=== PATIENT | male | born 1950 | race Caucasian/White ===

== ENCOUNTER → 2017-06-21 | Outpatient (CLI) | payer OTHER ==
[~2017-06-21] MED LIST: BENZ1TAB70 PO; CEPH500 PO; RISP2 PO; SULF-168 PO
== END | disposition home or self-care (01) ==
LOC: RADPV 09:19
PROVIDERS: ATTEND Internal Medicine Critical Care Medicine
DX: R13.10 Dysphagia, unspecified (principal); R05 Cough; R09.89 Other specified symptoms and signs involving the circulatory and respiratory systems
CPT/HCPCS: 74230; 92611

== ENCOUNTER 2018-07-01 18:09 | Emergency (ER) | payer MEDICARE, MEDICAID ==
[~2018-07-01] VITALS: Ht 174 cm; Wt 60.9 kg
[2018-07-01 20:55] LABS: BASOPHILS % (AUTO) 0.8 % (0.0-2.0); EOSINOPHILS % (AUTO) 8.2 % (1.0-6.0); HEMATOCRIT 34.7 % (41-53); HEMOGLOBIN 11.2 g/dL (13.5-17.5); LYMPHOCYTES # (AUTO) 1.7 K/uL (1.0-4.8); LYMPHOCYTES % (AUTO) 14.5 % (22.0-44.0); MEAN CORPUSCULAR HGB CONC 32.4 G/dL (31.0-37.0); MEAN CORPUSCULAR VOLUME 87 fL (80-100); MONOCYTES # (AUTO) 1.1 K/uL (0.1-1.0); NEUTROPHILS % (AUTO) 67.5 % (40.0-70.0); PLATELET COUNT (AUTO) 431 K/uL (150-450); RED BLOOD CELL COUNT(AUTO) 4.01 MIL/uL (4.50-5.90); RED CELL DISTRIBUTION WIDTH 17.5 % (11.5-14.5)
[2018-07-01 21:12] LABS: ANION GAP 9 mmol/L (8-16); CALCIUM, TOTAL 8.7 mg/dL (8.8-10.5); CARBON DIOXIDE 26 mmol/L (22-29); CHLORIDE 104 mmol/L (98-107); CREATININE 1.05 mg/dL (0.60-1.30); GLOMERULAR FILTR. RATE CALC > 60 mL/min (>60); GLUCOSE,RANDOM 106 mg/dL (70-110); POTASSIUM 5.1 mmol/L (3.5-5.1); SODIUM SERUM 139 mmol/L (136-145); UREA NITROGEN, BLOOD 29 mg/dL (7-18)
[2018-07-01 21:26] LABS: ALANINE AMINOTRANSFERASE 21 U/L (12-78); ALKALINE PHOSPHATASE 105 U/L (46-116); ASPARTATE AMINOTRANSFERASE 16 U/L (15-37); BILIRUBIN,TOTAL 0.2 mg/dL (0.1-1.0); TOTAL PROTEIN, SERUM 7.6 g/dL (6.4-8.2)
[2018-07-01 21:28] LABS: AMPHET/METH SCREEN,URINE NEGATIVE (NEGATIVE); BARBITURATE SCREEN, URINE NEGATIVE (NEGATIVE); BENZODIAZEPINES SCREEN,URINE NEGATIVE (NEGATIVE); CANNABINOID SCREEN,URINE POSITIVE (NEGATIVE); COCAINE SCREEN,URINE POSITIVE (NEGATIVE); METHADONE SCREEN, URINE NEGATIVE (NEGATIVE); OPIATE SCREEN,URINE NEGATIVE (NEGATIVE)
[2018-07-01 21:30] LABS: PHENCYCLIDINE SCREEN,URINE NEGATIVE (NEGATIVE)
[2018-07-01 22:10] VITALS: BP 147/82
== END 2018-07-01 22:33 | disposition home or self-care (01) ==
LOC: EMS 20:16
DX: R45.4 Irritability and anger (principal); R45.1 Restlessness and agitation; F20.9 Schizophrenia, unspecified; F17.210 Nicotine dependence, cigarettes, uncomplicated; F12.90 Cannabis use, unspecified, uncomplicated; Z88.8 Allergy status to other drugs, medicaments and biological substances; Z79.899 Other long term (current) drug therapy
CPT/HCPCS: 36415; 80053; 80307; 85025; 99283; G0480

== ENCOUNTER 2018-09-19 11:58 | Inpatient (IN) | payer MEDICAID, MEDICARE ==
[~2018-09-19] VITALS: Ht 170.2 cm; Wt 56.5 kg
[2018-09-19] MEDS ORDERED: PERMETHRIN 5% 60 GM CREAM TP ONE (13:00)
[2018-09-19] MEDS ORDERED: DiphenhydrAMINE HCL 25 MG CAPSULE PO ONE (13:00)
[2018-09-19 13:50] LABS: BASOPHILS % (AUTO) 0.4 % (0.0-2.0); EOSINOPHILS % (AUTO) 3.5 % (1.0-6.0); HEMATOCRIT 40.8 % (41-53); LYMPHOCYTES # (AUTO) 1.6 K/uL (1.0-4.8); LYMPHOCYTES % (AUTO) 13.3 % (22.0-44.0); MEAN CORPUSCULAR HEMOGLOBIN 26.7 pg (26.0-34.0); MEAN CORPUSCULAR HGB CONC 31.9 G/dL (31.0-37.0); MEAN CORPUSCULAR VOLUME 84 fL (80-100); MONOCYTES # (AUTO) 0.6 K/uL (0.1-1.0); MONOCYTES % (AUTO) 5.1 % (2.0-9.0); NEUTROPHILS # (AUTO) 9.6 K/uL (1.8-7.7); NEUTROPHILS % (AUTO) 77.7 % (40.0-70.0); PLATELET COUNT (AUTO) 472 K/uL (150-450); RED BLOOD CELL COUNT(AUTO) 4.87 MIL/uL (4.50-5.90); RED CELL DISTRIBUTION WIDTH 18.2 % (11.5-14.5)
[2018-09-19 13:57] LABS: ANION GAP 8 mmol/L (8-16); CALCIUM, TOTAL 8.6 mg/dL (8.8-10.5); CARBON DIOXIDE 28 mmol/L (22-29); CHLORIDE 103 mmol/L (98-107); CREATININE 0.94 mg/dL (0.60-1.30); GLOMERULAR FILTR. RATE CALC > 60 mL/min (>60); GLUCOSE,RANDOM 132 mg/dL (70-110); POTASSIUM 3.5 mmol/L (3.5-5.1); SODIUM SERUM 139 mmol/L (136-145); UREA NITROGEN, BLOOD 22 mg/dL (7-18)
[2018-09-19 14:09] LABS: ALANINE AMINOTRANSFERASE 19 U/L (12-78); ALKALINE PHOSPHATASE 124 U/L (46-116); ASPARTATE AMINOTRANSFERASE 15 U/L (15-37); BILIRUBIN,TOTAL 0.2 mg/dL (0.1-1.0); TOTAL PROTEIN, SERUM 7.5 g/dL (6.4-8.2)
[2018-09-19] MEDS ORDERED: LORazepam 2 MG/ML VIAL ONE (19:53)
[2018-09-19] MEDS ORDERED: DiphenhydrAMINE HCL 50 MG/ML VIAL ONE (19:53)
[2018-09-19] MEDS ORDERED: HALOPERIDOL LACTATE 5 MG/ML VIAL ONE (19:53)
[2018-09-19] MEDS ORDERED: HALOPERIDOL LACTATE 5 MG/ML VIAL IM ONE (20:00)
[2018-09-19] MEDS ORDERED: DiphenhydrAMINE HCL 50 MG/ML VIAL IM ONE (20:00)
[2018-09-19] MEDS ORDERED: LORazepam 2 MG/ML VIAL IM ONE (20:00)
[2018-09-19] MEDS ORDERED: PETROLATUM,WHITE 28 GM JELLY TP PRN (21:15)
[2018-09-19] MEDS ORDERED: MAGNESIUM HYDROXIDE SUSPENSION 30 ML UDCUP PO PRN (21:15)
[2018-09-19] MEDS ORDERED: MAG HYDROX/AL HYDROX/SIMETH ES 30 ML SUSPENSION UDCUP PO PRN (21:15)
[2018-09-19] MEDS ORDERED: CloNIDine HCL 0.1 MG TABLET PO PRN (21:15)
[2018-09-19] MEDS ORDERED: ALBUTEROL SULFATE HFA 90 MCG/PUFF 8 GM INHALER IH PRN (21:15)
[2018-09-19] MEDS ORDERED: DOCUSATE SODIUM 100 MG CAPSULE PO PRN (21:15)
[2018-09-19] MEDS ORDERED: NICOTINE 14 MG/24 HOUR PATCH TD PRN (21:15)
[2018-09-19] MEDS ORDERED: ONDANSETRON HCL 4 MG TABLET PO PRN (21:15)
[2018-09-19] MEDS ORDERED: GuaiFENesin/D-METHORPHAN [SUGAR-FREE] 200-20MG/10 ML SYRUP UDCUP PO PRN (21:15)
[2018-09-19] MEDS ORDERED: LOPERAMIDE HCL 2 MG CAPSULE PO PRN (21:15)
[2018-09-19] MEDS ORDERED: ACETAMINOPHEN 325 MG TABLET PO PRN (21:15)
[2018-09-20 06:34] LABS: BASOPHILS % (AUTO) 0.9 % (0.0-2.0); HEMATOCRIT 37.5 % (41-53); LYMPHOCYTES # (AUTO) 1.8 K/uL (1.0-4.8); LYMPHOCYTES % (AUTO) 17.1 % (22.0-44.0); MEAN CORPUSCULAR HEMOGLOBIN 26.9 pg (26.0-34.0); MEAN CORPUSCULAR HGB CONC 32.1 G/dL (31.0-37.0); MEAN CORPUSCULAR VOLUME 84 fL (80-100); MONOCYTES # (AUTO) 0.7 K/uL (0.1-1.0); MONOCYTES % (AUTO) 6.5 % (2.0-9.0); NEUTROPHILS # (AUTO) 7.3 K/uL (1.8-7.7); NEUTROPHILS % (AUTO) 69.5 % (40.0-70.0); PLATELET COUNT (AUTO) 420 K/uL (150-450); RED BLOOD CELL COUNT(AUTO) 4.48 MIL/uL (4.50-5.90); RED CELL DISTRIBUTION WIDTH 18.2 % (11.5-14.5)
[2018-09-20 06:45] LABS: HEMOGLOBIN A1C 6.1 % (4.5-6.2)
[2018-09-20 07:14] LABS: ALANINE AMINOTRANSFERASE 18 U/L (12-78); ALBUMIN 2.7 g/dL (3.4-5.0); ALKALINE PHOSPHATASE 117 U/L (46-116); ANION GAP 8 mmol/L (8-16); ASPARTATE AMINOTRANSFERASE 15 U/L (15-37); BILIRUBIN,TOTAL 0.2 mg/dL (0.1-1.0); CALCIUM, TOTAL 8.2 mg/dL (8.8-10.5); CARBON DIOXIDE 28 mmol/L (22-29); CHLORIDE 105 mmol/L (98-107); CHOL/HDL RATIO 3.6 (4.2-7.3); CHOLESTEROL 188 mg/dL (131-200); CREATININE 1.04 mg/dL (0.60-1.30); GLOMERULAR FILTR. RATE CALC > 60 mL/min (>60); GLUCOSE,RANDOM 87 mg/dL (70-110); HDL CHOLESTEROL 52 mg/dL (40-60); LDL CHOL (CALC.) 115 mg/dL (0-130); POTASSIUM 4.7 mmol/L (3.5-5.1); SODIUM SERUM 141 mmol/L (136-145); TOTAL PROTEIN, SERUM 6.3 g/dL (6.4-8.2); TRIGLYCERIDES 104 mg/dL (15-150); UREA NITROGEN, BLOOD 24 mg/dL (7-18)
[2018-09-20] MEDS: QUEtiapine FUMARATE 100 MG TABLET PO PRN (09:52)
[2018-09-20] MEDS: LORazepam 2 MG TABLET PO PRN ×2 (09:52→14:57)
[2018-09-20] MEDS: BENZTROPINE MESYLATE 1 MG TABLET PO SCH ×2 (10:58→21:20)
[2018-09-20] MEDS: RisperiDONE 2 MG TABLET PO SCH ×2 (10:58→21:20)
[2018-09-20 14:41] VITALS: BP 136/88
[2018-09-20 18:00] VITALS: BP 141/76
[2018-09-21 08:00] VITALS: BP 140/80
[2018-09-21] MEDS: MULTIVITAMINS WITH MINERALS, THERAPEUTIC TABLET PO SCH (08:21)
[2018-09-21] MEDS: BENZTROPINE MESYLATE 1 MG TABLET PO SCH ×2 (08:21→20:33)
[2018-09-21] MEDS: RisperiDONE 2 MG TABLET PO SCH ×2 (08:21→20:33)
[2018-09-21] MEDS: IBUPROFEN 400 MG TABLET PO PRN (15:47)
[2018-09-22 07:50] LABS: % IRON SATURATION 8.5 % (30-44)
[2018-09-22] MEDS: MULTIVITAMINS WITH MINERALS, THERAPEUTIC TABLET PO SCH (08:04)
[2018-09-22] MEDS: RisperiDONE 2 MG TABLET PO SCH ×2 (08:04→20:13)
[2018-09-22] MEDS: BENZTROPINE MESYLATE 1 MG TABLET PO SCH ×2 (08:04→20:13)
[2018-09-22 08:06] VITALS: BP 173/94
[2018-09-22] MEDS: QUEtiapine FUMARATE 100 MG TABLET PO PRN (08:06)
[2018-09-22] MEDS: IBUPROFEN 400 MG TABLET PO PRN (08:06)
[2018-09-22] MEDS: FERROUS SULFATE 325 MG EC TABLET PO SCH (16:33)
[2018-09-22 20:17] VITALS: BP 156/68
[2018-09-23] MEDS: FERROUS SULFATE 325 MG EC TABLET PO SCH ×2 (06:45→16:39)
[2018-09-23] MEDS: MULTIVITAMINS WITH MINERALS, THERAPEUTIC TABLET PO SCH (08:12)
[2018-09-23] MEDS: RisperiDONE 2 MG TABLET PO SCH ×2 (08:12→20:11)
[2018-09-23] MEDS: BENZTROPINE MESYLATE 1 MG TABLET PO SCH ×2 (08:12→20:11)
[2018-09-23 09:34] VITALS: BP 124/69
[2018-09-23 18:13] VITALS: BP 128/75
[2018-09-23] MEDS: ZOLPIDEM TARTRATE 10 MG TABLET PO PRN (21:52)
[2018-09-24] MEDS: FERROUS SULFATE 325 MG EC TABLET PO SCH ×2 (06:36→16:14)
[2018-09-24] MEDS: QUEtiapine FUMARATE 100 MG TABLET PO SCH ×3 (06:36→20:27)
[2018-09-24] MEDS: MULTIVITAMINS WITH MINERALS, THERAPEUTIC TABLET PO SCH (08:25)
[2018-09-24] MEDS: BENZTROPINE MESYLATE 1 MG TABLET PO SCH ×2 (08:25→20:27)
[2018-09-24 09:12] VITALS: BP 121/54
[2018-09-24 19:47] VITALS: BP 119/81
[2018-09-25 01:11] VITALS: BP 124/70
[2018-09-25] MEDS: ZOLPIDEM TARTRATE 10 MG TABLET PO PRN (01:20)
[2018-09-25] MEDS: IBUPROFEN 400 MG TABLET PO PRN (01:21)
[2018-09-25] MEDS: FERROUS SULFATE 325 MG EC TABLET PO SCH ×2 (06:47→16:30)
[2018-09-25] MEDS: QUEtiapine FUMARATE 100 MG TABLET PO SCH ×3 (08:26→20:00)
[2018-09-25] MEDS: BENZTROPINE MESYLATE 1 MG TABLET PO SCH ×2 (08:26→20:00)
[2018-09-25] MEDS: MULTIVITAMINS WITH MINERALS, THERAPEUTIC TABLET PO SCH (08:26)
[2018-09-25 09:23] VITALS: BP 145/67
[2018-09-25 17:09] VITALS: BP 118/94
[2018-09-26 05:26] VITALS: BP 110/60
[2018-09-26] MEDS: IBUPROFEN 400 MG TABLET PO PRN (05:29)
[2018-09-26] MEDS: FERROUS SULFATE 325 MG EC TABLET PO SCH ×2 (06:35→16:43)
[2018-09-26] MEDS: MULTIVITAMINS WITH MINERALS, THERAPEUTIC TABLET PO SCH (07:50)
[2018-09-26] MEDS: BENZTROPINE MESYLATE 1 MG TABLET PO SCH ×2 (07:50→20:07)
[2018-09-26] MEDS: QUEtiapine FUMARATE 100 MG TABLET PO SCH ×3 (07:51→20:07)
[2018-09-26] MEDS: LORazepam 2 MG TABLET PO PRN (07:51)
[2018-09-26 08:00] VITALS: BP 139/80
[2018-09-26] MEDS: ZOLPIDEM TARTRATE 10 MG TABLET PO PRN (20:55)
[2018-09-27] MEDS: FERROUS SULFATE 325 MG EC TABLET PO SCH ×2 (06:53→17:37)
[2018-09-27] MEDS: BENZTROPINE MESYLATE 1 MG TABLET PO SCH ×2 (08:31→22:15)
[2018-09-27] MEDS: QUEtiapine FUMARATE 100 MG TABLET PO SCH ×3 (08:32→22:15)
[2018-09-27] MEDS: MULTIVITAMINS WITH MINERALS, THERAPEUTIC TABLET PO SCH (08:32)
[2018-09-27 08:34] VITALS: BP 148/70
[2018-09-27] MEDS: IBUPROFEN 400 MG TABLET PO PRN (08:34)
[2018-09-27] MEDS: LORazepam 2 MG TABLET PO PRN (09:48)
[2018-09-27 18:45] VITALS: BP 147/98
[2018-09-28] MEDS: FERROUS SULFATE 325 MG EC TABLET PO SCH ×2 (06:39→16:35)
[2018-09-28 08:02] VITALS: BP 145/84
[2018-09-28] MEDS: MULTIVITAMINS WITH MINERALS, THERAPEUTIC TABLET PO SCH (08:13)
[2018-09-28] MEDS: QUEtiapine FUMARATE 100 MG TABLET PO SCH ×3 (08:13→20:18)
[2018-09-28] MEDS: BENZTROPINE MESYLATE 1 MG TABLET PO SCH ×2 (08:13→20:17)
[2018-09-28 17:06] VITALS: BP 149/74
[2018-09-29] MEDS: QUEtiapine FUMARATE 100 MG TABLET PO SCH ×3 (08:25→20:13)
[2018-09-29] MEDS: MULTIVITAMINS WITH MINERALS, THERAPEUTIC TABLET PO SCH (08:26)
[2018-09-29] MEDS: BENZTROPINE MESYLATE 1 MG TABLET PO SCH ×2 (08:26→20:13)
[2018-09-29] MEDS: FERROUS SULFATE 325 MG EC TABLET PO SCH ×2 (08:26→16:49)
[2018-09-29 08:55] VITALS: BP 129/78
[2018-09-29 16:33] VITALS: BP 133/83
[2018-09-30] MEDS: FERROUS SULFATE 325 MG EC TABLET PO SCH ×2 (06:44→16:11)
[2018-09-30 08:00] VITALS: BP 140/69
[2018-09-30] MEDS: MULTIVITAMINS WITH MINERALS, THERAPEUTIC TABLET PO SCH (09:31)
[2018-09-30] MEDS: BENZTROPINE MESYLATE 1 MG TABLET PO SCH ×2 (09:32→20:15)
[2018-09-30] MEDS: QUEtiapine FUMARATE 100 MG TABLET PO SCH ×3 (09:32→20:15)
[2018-09-30 14:16] VITALS: BP 140/69
[2018-09-30] MEDS: LORazepam 2 MG TABLET PO PRN (16:17)
[2018-09-30 16:49] VITALS: BP 123/83
[2018-10-01] MEDS: FERROUS SULFATE 325 MG EC TABLET PO SCH ×2 (06:40→16:40)
[2018-10-01] MEDS: MULTIVITAMINS WITH MINERALS, THERAPEUTIC TABLET PO SCH (07:54)
[2018-10-01] MEDS: QUEtiapine FUMARATE 100 MG TABLET PO SCH ×3 (07:54→20:07)
[2018-10-01] MEDS: BENZTROPINE MESYLATE 1 MG TABLET PO SCH ×2 (07:55→20:07)
[2018-10-01 08:25] VITALS: BP 122/74
[2018-10-01] MEDS: IBUPROFEN 400 MG TABLET PO PRN (08:25)
[2018-10-01 16:30] VITALS: BP 138/95
[2018-10-02] MEDS: FERROUS SULFATE 325 MG EC TABLET PO SCH ×2 (06:59→17:11)
[2018-10-02 08:00] VITALS: BP 117/60
[2018-10-02] MEDS: BENZTROPINE MESYLATE 1 MG TABLET PO SCH ×2 (09:55→20:30)
[2018-10-02] MEDS: QUEtiapine FUMARATE 100 MG TABLET PO SCH ×3 (09:55→20:30)
[2018-10-02] MEDS: MULTIVITAMINS WITH MINERALS, THERAPEUTIC TABLET PO SCH (09:55)
[2018-10-02] MEDS: LITHIUM CARBONATE 300 MG CAPSULE PO SCH (17:11)
[2018-10-02 17:30] VITALS: BP 120/66
[2018-10-03] MEDS: FERROUS SULFATE 325 MG EC TABLET PO SCH ×2 (06:46→17:35)
[2018-10-03] MEDS: QUEtiapine FUMARATE 100 MG TABLET PO SCH ×3 (08:56→20:38)
[2018-10-03] MEDS: BENZTROPINE MESYLATE 1 MG TABLET PO SCH ×2 (08:56→20:38)
[2018-10-03] MEDS: LITHIUM CARBONATE 300 MG CAPSULE PO SCH ×2 (08:56→17:00)
[2018-10-03] MEDS: MULTIVITAMINS WITH MINERALS, THERAPEUTIC TABLET PO SCH (08:56)
[2018-10-04] MEDS: FERROUS SULFATE 325 MG EC TABLET PO SCH ×2 (07:05→16:46)
[2018-10-04 08:30] VITALS: BP 109/63
[2018-10-04] MEDS: LORazepam 2 MG TABLET PO PRN (08:46)
[2018-10-04] MEDS: BENZTROPINE MESYLATE 1 MG TABLET PO SCH ×2 (08:46→21:21)
[2018-10-04] MEDS: LITHIUM CARBONATE 300 MG CAPSULE PO SCH ×2 (08:46→16:46)
[2018-10-04] MEDS: QUEtiapine FUMARATE 100 MG TABLET PO SCH (08:46)
[2018-10-04] MEDS: MULTIVITAMINS WITH MINERALS, THERAPEUTIC TABLET PO SCH (08:46)
[2018-10-04 16:30] VITALS: BP 139/74
[2018-10-04] MEDS: QUEtiapine FUMARATE 200 MG TABLET PO SCH ×2 (16:47→21:21)
[2018-10-05] MEDS: FERROUS SULFATE 325 MG EC TABLET PO SCH ×2 (06:32→17:21)
[2018-10-05 08:00] VITALS: BP 121/71
[2018-10-05] MEDS: MULTIVITAMINS WITH MINERALS, THERAPEUTIC TABLET PO SCH (09:23)
[2018-10-05] MEDS: BENZTROPINE MESYLATE 1 MG TABLET PO SCH ×2 (09:23→21:09)
[2018-10-05] MEDS: QUEtiapine FUMARATE 200 MG TABLET PO SCH ×3 (09:24→21:09)
[2018-10-05] MEDS: LITHIUM CARBONATE 300 MG CAPSULE PO SCH ×2 (09:24→17:22)
[2018-10-05] MEDS: IBUPROFEN 400 MG TABLET PO PRN (12:35)
[2018-10-05 19:20] VITALS: BP 127/76
[2018-10-06] MEDS: FERROUS SULFATE 325 MG EC TABLET PO SCH ×2 (06:43→17:10)
[2018-10-06 08:00] VITALS: BP 124/73
[2018-10-06] MEDS: QUEtiapine FUMARATE 200 MG TABLET PO SCH ×3 (08:41→20:47)
[2018-10-06] MEDS: BENZTROPINE MESYLATE 1 MG TABLET PO SCH ×2 (08:42→20:47)
[2018-10-06] MEDS: MULTIVITAMINS WITH MINERALS, THERAPEUTIC TABLET PO SCH (08:42)
[2018-10-06] MEDS: LITHIUM CARBONATE 300 MG CAPSULE PO SCH ×2 (08:42→17:07)
[2018-10-06] MEDS: IBUPROFEN 400 MG TABLET PO PRN (12:28)
[2018-10-07] MEDS: FERROUS SULFATE 325 MG EC TABLET PO SCH ×2 (06:58→16:28)
[2018-10-07 08:00] VITALS: BP 116/64
[2018-10-07] MEDS: QUEtiapine FUMARATE 200 MG TABLET PO SCH ×3 (09:13→20:11)
[2018-10-07] MEDS: LITHIUM CARBONATE 300 MG CAPSULE PO SCH ×2 (09:13→16:27)
[2018-10-07] MEDS: BENZTROPINE MESYLATE 1 MG TABLET PO SCH ×2 (09:13→20:11)
[2018-10-07] MEDS: MULTIVITAMINS WITH MINERALS, THERAPEUTIC TABLET PO SCH (09:13)
[2018-10-07 16:08] VITALS: BP 126/64
[2018-10-08] MEDS: FERROUS SULFATE 325 MG EC TABLET PO SCH ×2 (06:51→16:54)
[2018-10-08 09:11] VITALS: BP 122/77
[2018-10-08] MEDS: MULTIVITAMINS WITH MINERALS, THERAPEUTIC TABLET PO SCH (09:21)
[2018-10-08] MEDS: QUEtiapine FUMARATE 200 MG TABLET PO SCH ×3 (09:21→20:38)
[2018-10-08] MEDS: LITHIUM CARBONATE 300 MG CAPSULE PO SCH ×2 (09:21→16:54)
[2018-10-08] MEDS: BENZTROPINE MESYLATE 1 MG TABLET PO SCH ×2 (09:21→20:38)
[2018-10-08 17:10] VITALS: BP 112/65
[2018-10-09] MEDS: FERROUS SULFATE 325 MG EC TABLET PO SCH ×2 (06:52→16:32)
[2018-10-09] MEDS: QUEtiapine FUMARATE 200 MG TABLET PO SCH ×3 (09:30→20:06)
[2018-10-09] MEDS: BENZTROPINE MESYLATE 1 MG TABLET PO SCH ×2 (09:30→20:06)
[2018-10-09] MEDS: LITHIUM CARBONATE 300 MG CAPSULE PO SCH ×2 (09:30→16:32)
[2018-10-09] MEDS: MULTIVITAMINS WITH MINERALS, THERAPEUTIC TABLET PO SCH (09:31)
[2018-10-09 09:38] VITALS: BP 132/67
[2018-10-09 17:00] VITALS: BP 128/72
[2018-10-10] MEDS: FERROUS SULFATE 325 MG EC TABLET PO SCH ×2 (06:47→18:27)
[2018-10-10 08:00] VITALS: BP 121/65
[2018-10-10] MEDS: LITHIUM CARBONATE 300 MG CAPSULE PO SCH ×2 (10:35→18:27)
[2018-10-10] MEDS: QUEtiapine FUMARATE 200 MG TABLET PO SCH ×3 (10:35→21:28)
[2018-10-10] MEDS: MULTIVITAMINS WITH MINERALS, THERAPEUTIC TABLET PO SCH (10:35)
[2018-10-10] MEDS: BENZTROPINE MESYLATE 1 MG TABLET PO SCH ×2 (10:35→21:28)
[2018-10-11] MEDS: FERROUS SULFATE 325 MG EC TABLET PO SCH (07:01)
[2018-10-11 08:00] VITALS: BP 136/80
[2018-10-11] MEDS: LITHIUM CARBONATE 300 MG CAPSULE PO SCH (09:24)
[2018-10-11] MEDS: BENZTROPINE MESYLATE 1 MG TABLET PO SCH (09:24)
[2018-10-11] MEDS: QUEtiapine FUMARATE 200 MG TABLET PO SCH (09:24)
[2018-10-11] MEDS: MULTIVITAMINS WITH MINERALS, THERAPEUTIC TABLET PO SCH (09:24)
[2018-10-11] MEDS ORDERED: LITH300C3 PO (10:29)
[2018-10-11] MEDS ORDERED: BENZ1TAB10 PO (10:29)
[2018-10-11] MEDS ORDERED: QUET200T29 PO (10:29)
[2018-10-11] MEDS ORDERED: FERR-89 PO (11:18)
[2018-10-11] MEDS ORDERED: MULT-1239 PO (11:18)
== END 2018-10-11 16:00 | disposition home or self-care (01) | DRG 885 ==
LOC: EMS 11:58 → 3EI 18:40 → 3EC 20:10
DX: F25.1 Schizoaffective disorder, depressive type (principal); E43 Unspecified severe protein-calorie malnutrition; F33.2 Major depressive disorder, recurrent severe without psychotic features; R45.851 Suicidal ideations; D50.9 Iron deficiency anemia, unspecified; E83.51 Hypocalcemia; F12.10 Cannabis abuse, uncomplicated; F14.10 Cocaine abuse, uncomplicated; F17.200 Nicotine dependence, unspecified, uncomplicated; R21 Rash and other nonspecific skin eruption; Z53.20 Procedure and treatment not carried out because of patient's decision for unspecified reasons; Z79.899 Other long term (current) drug therapy; Z91.14 Patient's other noncompliance with medication regimen; Z91.5 Personal history of self-harm
CPT/HCPCS: 82728; 83036; 83540; 83550; 84443; 87081; 99406; G0480; J1200; J1630; J2060

== ENCOUNTER 2018-11-06 20:45 | Inpatient (IN) | payer MEDICARE, MEDICAID ==
[~2018-11-06] VITALS: Ht 170.2 cm; Wt 56.1 kg
[~2018-11-06 20:45] MED LIST changes: +BENZ1TAB10 PO; -BENZ1TAB70 PO; -CEPH500 PO; +FERR-89 PO; +LITH300C3 PO; +MULT-1239 PO; +QUET200T29 PO; -RISP2 PO; -SULF-168 PO
[2018-11-06] MEDS ORDERED: QUEtiapine FUMARATE 100 MG TABLET PO PRN (21:30)
[2018-11-06] MEDS ORDERED: ZOLPIDEM TARTRATE 10 MG TABLET PO PRN (21:30)
[2018-11-06] MEDS ORDERED: ACETAMINOPHEN 325 MG TABLET PO PRN (21:45)
[2018-11-06] MEDS ORDERED: DOCUSATE SODIUM 100 MG CAPSULE PO PRN (21:45)
[2018-11-06] MEDS ORDERED: IBUPROFEN 400 MG TABLET PO PRN (21:45)
[2018-11-06] MEDS ORDERED: GuaiFENesin/D-METHORPHAN [SUGAR-FREE] 200-20MG/10 ML SYRUP UDCUP PO PRN (21:45)
[2018-11-06] MEDS ORDERED: CloNIDine HCL 0.1 MG TABLET PO PRN (21:45)
[2018-11-06] MEDS ORDERED: NICOTINE 14 MG/24 HOUR PATCH TD PRN (21:45)
[2018-11-06] MEDS ORDERED: PETROLATUM,WHITE 28 GM JELLY TP PRN (21:45)
[2018-11-06] MEDS ORDERED: MAGNESIUM HYDROXIDE SUSPENSION 30 ML UDCUP PO PRN (21:45)
[2018-11-06] MEDS ORDERED: ALBUTEROL SULFATE HFA 90 MCG/PUFF 8 GM INHALER IH PRN (21:45)
[2018-11-06] MEDS ORDERED: LOPERAMIDE HCL 2 MG CAPSULE PO PRN (21:45)
[2018-11-06] MEDS ORDERED: MAG HYDROX/AL HYDROX/SIMETH ES 30 ML SUSPENSION UDCUP PO PRN (21:45)
[2018-11-06] MEDS ORDERED: ONDANSETRON HCL 4 MG TABLET PO PRN (21:45)
[2018-11-06 22:13] VITALS: BP 124/77
[2018-11-07] MEDS: ASPIRIN 81 MG CHEWABLE TABLET PO SCH (08:17)
[2018-11-07] MEDS: MULTIVITAMINS WITH MINERALS, THERAPEUTIC TABLET PO SCH (08:17)
[2018-11-07] MEDS: LITHIUM CARBONATE 300 MG CAPSULE PO SCH ×2 (08:17→16:00)
[2018-11-07] MEDS: CARVEDILOL 3.125 MG TABLET PO SCH ×2 (08:17→16:02)
[2018-11-07] MEDS ORDERED: QUEtiapine FUMARATE 200 MG TABLET PO SCH (09:00)
[2018-11-07] MEDS: QUEtiapine FUMARATE 200 MG TABLET PO SCH ×2 (16:00→20:01)
[2018-11-07 16:25] VITALS: BP 98/58
[2018-11-07] MEDS: LORazepam 2 MG TABLET PO PRN (19:25)
[2018-11-07] MEDS: BENZTROPINE MESYLATE 1 MG TABLET PO SCH (20:01)
[2018-11-08] MEDS: QUEtiapine FUMARATE 200 MG TABLET PO SCH ×3 (08:54→20:38)
[2018-11-08] MEDS: BENZTROPINE MESYLATE 1 MG TABLET PO SCH ×2 (08:55→20:38)
[2018-11-08] MEDS: LITHIUM CARBONATE 300 MG CAPSULE PO SCH ×2 (08:55→16:32)
[2018-11-08] MEDS: CARVEDILOL 3.125 MG TABLET PO SCH ×2 (08:55→16:32)
[2018-11-08] MEDS: ASPIRIN 81 MG CHEWABLE TABLET PO SCH (08:55)
[2018-11-08] MEDS: MULTIVITAMINS WITH MINERALS, THERAPEUTIC TABLET PO SCH (08:56)
[2018-11-08 10:17] VITALS: BP 113/76
[2018-11-08 17:00] VITALS: BP 128/74
[2018-11-09] MEDS: CARVEDILOL 3.125 MG TABLET PO SCH ×2 (08:27→16:50)
[2018-11-09] MEDS: ASPIRIN 81 MG CHEWABLE TABLET PO SCH (08:27)
[2018-11-09] MEDS: LITHIUM CARBONATE 300 MG CAPSULE PO SCH ×2 (08:27→16:50)
[2018-11-09] MEDS: QUEtiapine FUMARATE 200 MG TABLET PO SCH ×3 (08:27→21:13)
[2018-11-09] MEDS: BENZTROPINE MESYLATE 1 MG TABLET PO SCH ×2 (08:27→21:13)
[2018-11-09] MEDS: MULTIVITAMINS WITH MINERALS, THERAPEUTIC TABLET PO SCH (08:27)
[2018-11-09 13:08] VITALS: BP 112/76
[2018-11-10] MEDS: BENZTROPINE MESYLATE 1 MG TABLET PO SCH ×2 (09:00→21:11)
[2018-11-10] MEDS: MULTIVITAMINS WITH MINERALS, THERAPEUTIC TABLET PO SCH (09:00)
[2018-11-10] MEDS: LITHIUM CARBONATE 300 MG CAPSULE PO SCH ×2 (09:00→16:52)
[2018-11-10] MEDS: CARVEDILOL 3.125 MG TABLET PO SCH ×2 (09:00→16:52)
[2018-11-10] MEDS: ASPIRIN 81 MG CHEWABLE TABLET PO SCH (09:00)
[2018-11-10] MEDS: QUEtiapine FUMARATE 200 MG TABLET PO SCH ×3 (09:00→21:11)
[2018-11-11] MEDS: ASPIRIN 81 MG CHEWABLE TABLET PO SCH (08:10)
[2018-11-11] MEDS: QUEtiapine FUMARATE 200 MG TABLET PO SCH ×3 (08:10→20:07)
[2018-11-11] MEDS: CARVEDILOL 3.125 MG TABLET PO SCH ×2 (08:10→16:27)
[2018-11-11] MEDS: LITHIUM CARBONATE 300 MG CAPSULE PO SCH ×2 (08:10→16:27)
[2018-11-11] MEDS: MULTIVITAMINS WITH MINERALS, THERAPEUTIC TABLET PO SCH (08:10)
[2018-11-11] MEDS: BENZTROPINE MESYLATE 1 MG TABLET PO SCH ×2 (08:10→20:08)
[2018-11-11 16:05] VITALS: BP 153/83
[2018-11-12] MEDS: BENZTROPINE MESYLATE 1 MG TABLET PO SCH ×2 (08:40→20:37)
[2018-11-12] MEDS: LITHIUM CARBONATE 300 MG CAPSULE PO SCH ×2 (08:40→16:06)
[2018-11-12] MEDS: CARVEDILOL 3.125 MG TABLET PO SCH ×2 (08:40→16:06)
[2018-11-12] MEDS: QUEtiapine FUMARATE 200 MG TABLET PO SCH ×3 (08:40→20:37)
[2018-11-12] MEDS: MULTIVITAMINS WITH MINERALS, THERAPEUTIC TABLET PO SCH (08:40)
[2018-11-12] MEDS: ASPIRIN 81 MG CHEWABLE TABLET PO SCH (09:20)
[2018-11-12 09:57] VITALS: BP 121/68
[2018-11-12 16:09] VITALS: BP 135/80
[2018-11-13] MEDS: QUEtiapine FUMARATE 200 MG TABLET PO SCH ×3 (08:33→20:06)
[2018-11-13] MEDS: BENZTROPINE MESYLATE 1 MG TABLET PO SCH ×2 (08:33→20:07)
[2018-11-13] MEDS: MULTIVITAMINS WITH MINERALS, THERAPEUTIC TABLET PO SCH (08:33)
[2018-11-13] MEDS: CARVEDILOL 3.125 MG TABLET PO SCH ×2 (08:33→16:10)
[2018-11-13] MEDS: ASPIRIN 81 MG CHEWABLE TABLET PO SCH (08:33)
[2018-11-13] MEDS: LITHIUM CARBONATE 300 MG CAPSULE PO SCH ×2 (08:33→16:10)
[2018-11-13 10:00] VITALS: BP 153/78
[2018-11-14] MEDS: ASPIRIN 81 MG CHEWABLE TABLET PO SCH (08:34)
[2018-11-14] MEDS: LITHIUM CARBONATE 300 MG CAPSULE PO SCH ×2 (08:34→16:49)
[2018-11-14] MEDS: QUEtiapine FUMARATE 200 MG TABLET PO SCH ×3 (08:34→20:29)
[2018-11-14] MEDS: MULTIVITAMINS WITH MINERALS, THERAPEUTIC TABLET PO SCH (08:35)
[2018-11-14] MEDS: CARVEDILOL 3.125 MG TABLET PO SCH ×2 (08:35→16:48)
[2018-11-14] MEDS: BENZTROPINE MESYLATE 1 MG TABLET PO SCH ×2 (08:35→20:29)
[2018-11-14 18:07] VITALS: BP 99/55
[2018-11-15] MEDS: MULTIVITAMINS WITH MINERALS, THERAPEUTIC TABLET PO SCH (08:50)
[2018-11-15] MEDS: QUEtiapine FUMARATE 200 MG TABLET PO SCH ×3 (08:50→21:10)
[2018-11-15] MEDS: ASPIRIN 81 MG CHEWABLE TABLET PO SCH (08:50)
[2018-11-15] MEDS: CARVEDILOL 3.125 MG TABLET PO SCH ×2 (08:50→17:05)
[2018-11-15] MEDS: BENZTROPINE MESYLATE 1 MG TABLET PO SCH ×2 (08:51→21:09)
[2018-11-15] MEDS: LITHIUM CARBONATE 300 MG CAPSULE PO SCH ×2 (08:51→17:05)
[2018-11-15] MEDS: LORazepam 2 MG TABLET PO PRN (13:05)
[2018-11-15 16:20] VITALS: BP 101/59
[2018-11-16] MEDS: BENZTROPINE MESYLATE 1 MG TABLET PO SCH ×2 (08:43→20:08)
[2018-11-16] MEDS: MULTIVITAMINS WITH MINERALS, THERAPEUTIC TABLET PO SCH (08:43)
[2018-11-16] MEDS: CARVEDILOL 3.125 MG TABLET PO SCH ×2 (08:43→16:10)
[2018-11-16] MEDS: QUEtiapine FUMARATE 200 MG TABLET PO SCH ×3 (08:43→20:08)
[2018-11-16] MEDS: LORazepam 2 MG TABLET PO PRN (08:43)
[2018-11-16] MEDS: ASPIRIN 81 MG CHEWABLE TABLET PO SCH (08:43)
[2018-11-16] MEDS: LITHIUM CARBONATE 300 MG CAPSULE PO SCH ×2 (08:44→16:10)
[2018-11-16 10:07] VITALS: BP 126/64
[2018-11-16 17:09] VITALS: BP 132/68
[2018-11-17] MEDS: MULTIVITAMINS WITH MINERALS, THERAPEUTIC TABLET PO SCH (09:49)
[2018-11-17] MEDS: CARVEDILOL 3.125 MG TABLET PO SCH ×2 (09:49→16:30)
[2018-11-17] MEDS: LITHIUM CARBONATE 300 MG CAPSULE PO SCH ×2 (09:49→20:08)
[2018-11-17] MEDS: ASPIRIN 81 MG CHEWABLE TABLET PO SCH (09:49)
[2018-11-17] MEDS: BENZTROPINE MESYLATE 1 MG TABLET PO SCH ×2 (09:49→20:09)
[2018-11-17] MEDS: QUEtiapine FUMARATE 200 MG TABLET PO SCH ×3 (09:50→20:09)
[2018-11-17 10:05] VITALS: BP 128/74
[2018-11-18 08:15] VITALS: BP 120/65
[2018-11-18] MEDS: QUEtiapine FUMARATE 200 MG TABLET PO SCH ×3 (09:14→20:26)
[2018-11-18] MEDS: BENZTROPINE MESYLATE 1 MG TABLET PO SCH ×2 (09:14→20:26)
[2018-11-18] MEDS: MULTIVITAMINS WITH MINERALS, THERAPEUTIC TABLET PO SCH (09:14)
[2018-11-18] MEDS: CARVEDILOL 3.125 MG TABLET PO SCH ×2 (09:14→17:33)
[2018-11-18] MEDS: LITHIUM CARBONATE 300 MG CAPSULE PO SCH ×2 (09:14→17:14)
[2018-11-18] MEDS: ASPIRIN 81 MG CHEWABLE TABLET PO SCH (09:14)
[2018-11-18 21:52] VITALS: BP 146/72
[2018-11-19] MEDS: QUEtiapine FUMARATE 200 MG TABLET PO SCH ×3 (09:09→20:46)
[2018-11-19] MEDS: CARVEDILOL 3.125 MG TABLET PO SCH ×2 (09:09→17:22)
[2018-11-19] MEDS: ASPIRIN 81 MG CHEWABLE TABLET PO SCH (09:09)
[2018-11-19] MEDS: LITHIUM CARBONATE 300 MG CAPSULE PO SCH ×2 (09:09→17:22)
[2018-11-19] MEDS: BENZTROPINE MESYLATE 1 MG TABLET PO SCH ×2 (09:09→20:46)
[2018-11-19] MEDS: MULTIVITAMINS WITH MINERALS, THERAPEUTIC TABLET PO SCH (09:09)
[2018-11-20] MEDS: MULTIVITAMINS WITH MINERALS, THERAPEUTIC TABLET PO SCH (08:23)
[2018-11-20] MEDS: BENZTROPINE MESYLATE 1 MG TABLET PO SCH ×2 (08:23→20:35)
[2018-11-20] MEDS: QUEtiapine FUMARATE 200 MG TABLET PO SCH ×3 (08:23→20:35)
[2018-11-20] MEDS: ASPIRIN 81 MG CHEWABLE TABLET PO SCH (08:24)
[2018-11-20] MEDS: LITHIUM CARBONATE 300 MG CAPSULE PO SCH ×2 (08:24→17:28)
[2018-11-20] MEDS: CARVEDILOL 3.125 MG TABLET PO SCH ×2 (08:24→17:28)
[2018-11-20 10:26] VITALS: BP 119/88
[2018-11-20 16:15] VITALS: BP 116/90
[2018-11-20] MEDS: LORazepam 2 MG TABLET PO PRN (17:28)
[2018-11-21] MEDS: LITHIUM CARBONATE 300 MG CAPSULE PO SCH ×2 (08:35→17:15)
[2018-11-21] MEDS: ASPIRIN 81 MG CHEWABLE TABLET PO SCH (08:35)
[2018-11-21] MEDS: MULTIVITAMINS WITH MINERALS, THERAPEUTIC TABLET PO SCH (08:35)
[2018-11-21] MEDS: BENZTROPINE MESYLATE 1 MG TABLET PO SCH ×2 (08:36→21:05)
[2018-11-21] MEDS: CARVEDILOL 3.125 MG TABLET PO SCH ×2 (08:36→17:15)
[2018-11-21] MEDS: QUEtiapine FUMARATE 200 MG TABLET PO SCH ×3 (08:36→21:05)
[2018-11-21 16:34] VITALS: BP 138/62
[2018-11-22] MEDS: ASPIRIN 81 MG CHEWABLE TABLET PO SCH (08:37)
[2018-11-22] MEDS: QUEtiapine FUMARATE 200 MG TABLET PO SCH ×3 (08:37→20:16)
[2018-11-22] MEDS: LORazepam 2 MG TABLET PO PRN (08:37)
[2018-11-22] MEDS: BENZTROPINE MESYLATE 1 MG TABLET PO SCH ×2 (08:37→20:16)
[2018-11-22] MEDS: MULTIVITAMINS WITH MINERALS, THERAPEUTIC TABLET PO SCH (08:37)
[2018-11-22] MEDS: CARVEDILOL 3.125 MG TABLET PO SCH ×2 (08:38→16:55)
[2018-11-22] MEDS: LITHIUM CARBONATE 300 MG CAPSULE PO SCH ×2 (08:38→16:54)
[2018-11-22 22:45] VITALS: BP 122/70
[2018-11-23] MEDS: LITHIUM CARBONATE 300 MG CAPSULE PO SCH ×2 (09:07→16:03)
[2018-11-23] MEDS: CARVEDILOL 3.125 MG TABLET PO SCH ×2 (09:07→16:03)
[2018-11-23] MEDS: QUEtiapine FUMARATE 200 MG TABLET PO SCH ×3 (09:07→20:20)
[2018-11-23] MEDS: MULTIVITAMINS WITH MINERALS, THERAPEUTIC TABLET PO SCH (09:07)
[2018-11-23] MEDS: BENZTROPINE MESYLATE 1 MG TABLET PO SCH ×2 (09:07→20:20)
[2018-11-23] MEDS: ASPIRIN 81 MG CHEWABLE TABLET PO SCH (09:07)
[2018-11-23 10:17] VITALS: BP 109/60
[2018-11-23 17:25] VITALS: BP 145/95
[2018-11-24] MEDS: LORazepam 2 MG TABLET PO PRN ×2 (08:11→18:24)
[2018-11-24] MEDS: ASPIRIN 81 MG CHEWABLE TABLET PO SCH (08:11)
[2018-11-24] MEDS: CARVEDILOL 3.125 MG TABLET PO SCH ×2 (08:11→17:18)
[2018-11-24] MEDS: MULTIVITAMINS WITH MINERALS, THERAPEUTIC TABLET PO SCH (08:11)
[2018-11-24] MEDS: LITHIUM CARBONATE 300 MG CAPSULE PO SCH ×2 (08:11→17:18)
[2018-11-24] MEDS: QUEtiapine FUMARATE 200 MG TABLET PO SCH ×3 (08:11→21:34)
[2018-11-24] MEDS: BENZTROPINE MESYLATE 1 MG TABLET PO SCH ×2 (08:11→21:34)
[2018-11-24 08:40] VITALS: BP 99/60
[2018-11-25] MEDS: ASPIRIN 81 MG CHEWABLE TABLET PO SCH (08:38)
[2018-11-25] MEDS: LITHIUM CARBONATE 300 MG CAPSULE PO SCH ×2 (08:38→16:27)
[2018-11-25] MEDS: QUEtiapine FUMARATE 200 MG TABLET PO SCH ×3 (08:38→21:01)
[2018-11-25] MEDS: MULTIVITAMINS WITH MINERALS, THERAPEUTIC TABLET PO SCH (08:38)
[2018-11-25] MEDS: CARVEDILOL 3.125 MG TABLET PO SCH ×2 (08:38→16:27)
[2018-11-25] MEDS: BENZTROPINE MESYLATE 1 MG TABLET PO SCH ×2 (08:38→21:01)
[2018-11-25] MEDS: LORazepam 2 MG TABLET PO PRN (18:08)
[2018-11-26] MEDS: LORazepam 2 MG TABLET PO PRN (08:54)
[2018-11-26] MEDS: BENZTROPINE MESYLATE 1 MG TABLET PO SCH ×2 (08:55→20:38)
[2018-11-26] MEDS: LITHIUM CARBONATE 300 MG CAPSULE PO SCH ×2 (08:55→16:47)
[2018-11-26] MEDS: ASPIRIN 81 MG CHEWABLE TABLET PO SCH (08:55)
[2018-11-26] MEDS: MULTIVITAMINS WITH MINERALS, THERAPEUTIC TABLET PO SCH (08:55)
[2018-11-26] MEDS: CARVEDILOL 3.125 MG TABLET PO SCH ×2 (08:55→16:47)
[2018-11-26] MEDS: QUEtiapine FUMARATE 200 MG TABLET PO SCH ×3 (08:55→20:37)
[2018-11-27] MEDS: BENZTROPINE MESYLATE 1 MG TABLET PO SCH ×2 (08:52→22:08)
[2018-11-27] MEDS: MULTIVITAMINS WITH MINERALS, THERAPEUTIC TABLET PO SCH (08:52)
[2018-11-27] MEDS: LITHIUM CARBONATE 300 MG CAPSULE PO SCH ×2 (08:52→17:03)
[2018-11-27] MEDS: ASPIRIN 81 MG CHEWABLE TABLET PO SCH (08:52)
[2018-11-27] MEDS: QUEtiapine FUMARATE 200 MG TABLET PO SCH ×3 (08:52→22:08)
[2018-11-27] MEDS: CARVEDILOL 3.125 MG TABLET PO SCH ×2 (08:52→17:02)
[2018-11-27 17:00] VITALS: BP 125/69
[2018-11-28 08:41] VITALS: BP 116/74
[2018-11-28] MEDS: MULTIVITAMINS WITH MINERALS, THERAPEUTIC TABLET PO SCH (08:43)
[2018-11-28] MEDS: QUEtiapine FUMARATE 200 MG TABLET PO SCH ×3 (08:43→21:02)
[2018-11-28] MEDS: ASPIRIN 81 MG CHEWABLE TABLET PO SCH (08:43)
[2018-11-28] MEDS: LITHIUM CARBONATE 300 MG CAPSULE PO SCH ×2 (08:43→16:43)
[2018-11-28] MEDS: CARVEDILOL 3.125 MG TABLET PO SCH ×2 (08:43→16:44)
[2018-11-28] MEDS: BENZTROPINE MESYLATE 1 MG TABLET PO SCH ×2 (08:43→21:02)
[2018-11-28 08:52] VITALS: BP 116/74
[2018-11-28] MEDS: BuPROPion HCL 100 MG SR TABLET PO SCH (12:59)
[2018-11-28 17:00] VITALS: BP 130/72
[2018-11-29] MEDS ORDERED: BUPR100SR PO (08:46)
[2018-11-29] MEDS ORDERED: BENZ1TAB10 PO (08:46)
[2018-11-29] MEDS ORDERED: QUET200T29 PO (08:46)
[2018-11-29] MEDS ORDERED: LITH300C3 PO (08:46)
[2018-11-29] MEDS: BENZTROPINE MESYLATE 1 MG TABLET PO SCH (08:50)
[2018-11-29] MEDS: ASPIRIN 81 MG CHEWABLE TABLET PO SCH (08:50)
[2018-11-29] MEDS: CARVEDILOL 3.125 MG TABLET PO SCH (08:50)
[2018-11-29] MEDS: BuPROPion HCL 100 MG SR TABLET PO SCH (08:51)
[2018-11-29] MEDS: LITHIUM CARBONATE 300 MG CAPSULE PO SCH (08:51)
[2018-11-29] MEDS: QUEtiapine FUMARATE 200 MG TABLET PO SCH (08:53)
[2018-11-29] MEDS: MULTIVITAMINS WITH MINERALS, THERAPEUTIC TABLET PO SCH (08:54)
[2018-11-29 09:43] VITALS: BP 128/72
[2018-11-29] MEDS ORDERED: ASPI81 PO (11:16)
[2018-11-29] MEDS ORDERED: CARV3 PO (11:17)
== END 2018-11-29 14:30 | disposition home or self-care (01) | DRG 885 ==
LOC: 3EX 20:45
DX: F25.0 Schizoaffective disorder, bipolar type (principal); E43 Unspecified severe protein-calorie malnutrition; Z68.1 Body mass index [BMI] 19.9 or less, adult; E87.0 Hyperosmolality and hypernatremia; D64.9 Anemia, unspecified; F41.9 Anxiety disorder, unspecified; E87.6 Hypokalemia; I10 Essential (primary) hypertension; Z59.0 Homelessness; Z79.899 Other long term (current) drug therapy; Z91.19 Patient's noncompliance with other medical treatment and regimen; Z88.8 Allergy status to other drugs, medicaments and biological substances
CPT/HCPCS: 87081; G0378